=== PATIENT | male | born 1980 | race African-American/Black ===

== ENCOUNTER 2020-08-02 05:29 | Inpatient (IN) ==
[2020-08-02] MEDS ORDERED: SODIUM CHLORIDE 0.9% 1,000 ML IV STA (06:18)
[2020-08-02] MEDS ORDERED: ONDANSETRON 4 MG/2 ML VIAL IV STA (06:19)
[2020-08-02] MEDS ORDERED: PANTOPRAZOLE 40 MG VIAL IV STA (06:19)
[2020-08-02 06:37] LABS: Bilirubin,Urine Negative (Negative); Blood, Urine Negative (Negative); Glucose,Urine (UA) 150 mg/dL (Negative); Ketones,Urine Negative (Negative); Nitrite,Urine Negative (Negative); Protein,Urine 100 MG/DL; RBC,Urine 2 /HPF (0-4); Urine Appearance CLEAR (Clear); Urine Color Straw (Yellow); Urine Specific Gravity 1.011 (1.001-1.035); Urine Urobilinogen < 2.0 EU/DL (0.2-1.0); WBC,Urine 3 /HPF (0-6)
[2020-08-02] MEDS ORDERED: KETOROLAC 30 MG/1 ML VIAL IV STA (08:00)
[2020-08-02 09:30] LABS: Basophils % 0.2 % (0.0-0.8); Hematocrit 44.7 VOL% (42.0-52.0); Immature Granulocytes % 0.4 %; Immature Granulocytes Absolute 0.05 #; Lymphocytes # 0.9 10*3/uL (1.4-4.0); Lymphocytes % 7.2 % (21.2-54.2); Mean Corpuscular HGB Conc 33.6 GM/DL (32-36); Mean Platelet Volume 10.5 FL (9.6-12.0); Monocytes % 3.7 % (1.7-12.7); Neutrophils % 88.5 % (38.7-73.9); Platelet Count 303 T/CUMM (130-400); Red Blood Count 4.61 MC/CUMM (3.8-5.5); White Blood Count 11.9 T/CUMM (4-12)
[2020-08-02] MEDS ORDERED: ACETAMINOPHEN 325 MG TABLET PO PRN (09:44)
[2020-08-02] MEDS ORDERED: DEXTROSE 50% 25 GM/50 ML VIAL IV PRN (09:44)
[2020-08-02] MEDS ORDERED: GLUCAGON 1 MG VIAL IM PRN (09:44)
[2020-08-02 09:49] LABS: PT Patient Result 10.9 SECS (9.8-11.9); Partial Thromboplastin Time 28.2 SECS (23.9-33.8)
[2020-08-02 09:54] LABS: Alanine Aminotransferase 29 U/L (16-61); Albumin 5.1 G/DL (3.4-5.0); Alkaline Phosphatase 83 U/L (45-117); Aspartate Amino Transferase 16 U/L (0-37); Blood Urea Nitrogen 8 MG/DL (7-18); Calcium 9.3 MG/DL (8.5-10.1); Estimated Glom Filtration Rate 168 ML/MIN; Glucose 117 MG/DL (74-106); Total Protein 9.5 G/DL (6.4-8.3)
[2020-08-02] MEDS: SODIUM CHLORIDE 0.9% 1,000 ML IV SCH (10:05)
[2020-08-02 13:39] LABS: Hematocrit 44.2 VOL% (42.0-52.0); Hemoglobin 14.8 GM/DL (14.0-18.0)
[2020-08-02] MEDS ORDERED: hydrALAZINE 20 MG/1 ML VIAL IV PRN (15:51)
[2020-08-02] MEDS: MORPHINE 4 MG/1 ML VIAL IV PRN ×2 (16:10→21:16)
[2020-08-02 16:36] LABS: Bilirubin,Urine Negative (Negative); Blood, Urine Small mg/dL (Negative); Glucose,Urine (UA) 50 mg/dL (Negative); Ketones,Urine 5 mg/dL (Negative); Mucus,Urine Occasional /LPF (Occasional); Nitrite,Urine Negative (Negative); Protein,Urine 100 MG/DL; RBC,Urine 5 /HPF (0-4); Urine Appearance CLEAR (Clear); Urine Color Yellow (Yellow); Urine Specific Gravity 1.015 (1.001-1.035); Urine Urobilinogen < 2.0 EU/DL (0.2-1.0); WBC,Urine 2 /HPF (0-6)
[2020-08-02 17:44] LABS: Hematocrit 43.9 VOL% (42.0-52.0); Hemoglobin 15.2 GM/DL (14.0-18.0)
[2020-08-02] MEDS: PANTOPRAZOLE 40 MG VIAL IV SCH (21:16)
[2020-08-03 01:21] LABS: Hemoglobin 15.5 GM/DL (14.0-18.0)
[2020-08-03] MEDS: MORPHINE 4 MG/1 ML VIAL IV PRN ×3 (03:47→15:35)
[2020-08-03] MEDS: SODIUM CHLORIDE 0.9% 1,000 ML IV SCH ×4 (03:49→17:02)
[2020-08-03 05:45] LABS: Basophils % 0.2 % (0.0-0.8); Eosinophils % 0.1 % (0.00-10.9); Hematocrit 43.5 VOL% (42.0-52.0); Hemoglobin 15.1 GM/DL (14.0-18.0); Immature Granulocytes % 0.2 %; Immature Granulocytes Absolute 0.02 #; Lymphocytes # 2.2 10*3/uL (1.4-4.0); Lymphocytes % 19.9 % (21.2-54.2); Mean Corpuscular HGB Conc 34.7 GM/DL (32-36); Mean Corpuscular Volume 93.3 FL (87-102); Mean Platelet Volume 10.5 FL (9.6-12.0); Monocytes % 11.3 % (1.7-12.7); Neutrophils % 68.3 % (38.7-73.9); Platelet Count 313 T/CUMM (130-400); Red Blood Count 4.66 MC/CUMM (3.8-5.5); Red Cell Distribution Width 13.9 % (9.3-17.3)
[2020-08-03 06:24] LABS: Albumin 4.3 G/DL (3.4-5.0); Bilirubin,Total 0.7 MG/DL (0.2-1.0); Calcium 9.1 MG/DL (8.5-10.1); Osmolality,Calculated 273.7 MOS/KG (273-304); Risk Ratio 2.45; Thyroid Stimulating Hormone 1.06 uIU/ml (0.358-3.74); Total Protein 8.4 G/DL (6.4-8.3); VLDL CHOLESTEROL 11.6 MG/DL
[2020-08-03] MEDS: PANTOPRAZOLE 40 MG VIAL IV SCH ×2 (08:01→21:47)
[2020-08-03] MEDS ORDERED: LIDOCAINE 2% 5 ML VIAL ONE (09:00)
[2020-08-03] MEDS ORDERED: propofoL 200 MG/20 ML VIAL IV ONE (09:00)
[2020-08-03] MEDS: LACTATED RINGERS 1,000 ML IV SCH (12:00)
[2020-08-03] MEDS ORDERED: fentaNYL 100 MCG/2 ML VIAL ONE (13:32)
[2020-08-03] MEDS ORDERED: BISACODYL 5 MG TABLET PO ONE (15:00)
[2020-08-03] MEDS ORDERED: POLYETHYLENE GLYCOL POWDER 255 GM BOTTLE PO ONE (18:00)
[2020-08-03] MEDS: ONDANSETRON 4 MG/2 ML VIAL IV PRN (19:43)
[2020-08-04] MEDS: MORPHINE 4 MG/1 ML VIAL IV PRN ×4 (00:38→15:09)
[2020-08-04] MEDS: ONDANSETRON 4 MG/2 ML VIAL IV PRN (00:41)
[2020-08-04] MEDS ORDERED: MAGNESIUM CITRATE 300 ML BOTTLE PO ONE ×2 (05:00→06:00)
[2020-08-04 05:58] LABS: Basophils % 0.2 % (0.0-0.8); Eosinophils % 0.4 % (0.00-10.9); Hematocrit 41.3 VOL% (42.0-52.0); Hemoglobin 13.8 GM/DL (14.0-18.0); Immature Granulocytes % 0.2 %; Immature Granulocytes Absolute 0.02 #; Lymphocytes # 3.1 10*3/uL (1.4-4.0); Lymphocytes % 35.9 % (21.2-54.2); Mean Corpuscular HGB Conc 33.4 GM/DL (32-36); Mean Corpuscular Volume 97.2 FL (87-102); Mean Platelet Volume 10.5 FL (9.6-12.0); Monocytes % 9.3 % (1.7-12.7); Platelet Count 286 T/CUMM (130-400); Red Blood Count 4.25 MC/CUMM (3.8-5.5); Red Cell Distribution Width 14.4 % (9.3-17.3); White Blood Count 8.5 T/CUMM (4-12)
[2020-08-04 06:23] LABS: Albumin 3.9 G/DL (3.4-5.0); Bilirubin,Total 0.9 MG/DL (0.2-1.0); Calcium 8.9 MG/DL (8.5-10.1); Osmolality,Calculated 279.4 MOS/KG (273-304); Total Protein 7.7 G/DL (6.4-8.3)
[2020-08-04] MEDS: LACTATED RINGERS 1,000 ML IV SCH (08:36)
[2020-08-04] MEDS: PANTOPRAZOLE 40 MG VIAL IV SCH (08:36)
[2020-08-04] MEDS ORDERED: propofoL 200 MG/20 ML VIAL IV ONE (09:00)
[2020-08-04] MEDS ORDERED: LIDOCAINE 2% 5 ML VIAL ONE (09:00)
[2020-08-04 16:13] VITALS: BP 135/70
== END 2020-08-04 17:25 | disposition home or self-care (01) | DRG 377 ==
LOC: N.ED 05:29 → N.EDINP 09:44 → SUATTDRO 09:44 → N.4E 12:20
PROVIDERS: ADMIT Internal Medicine; ATTEND Internal Medicine

== ENCOUNTER 2021-01-07 09:08 | Inpatient (IN) ==
[2021-01-07 09:40] LABS: Basophils % 0.1 % (0.0-0.8); Hematocrit 46.1 VOL% (42.0-52.0); Hemoglobin 15.8 GM/DL (14.0-18.0); Immature Granulocytes % 0.3 %; Immature Granulocytes Absolute 0.05 #; Lymphocytes # 1.2 10*3/uL (1.4-4.0); Lymphocytes % 7.6 % (21.2-54.2); Mean Corpuscular HGB Conc 34.3 GM/DL (32-36); Mean Corpuscular Volume 93.9 FL (87-102); Mean Platelet Volume 10.1 FL (9.6-12.0); Monocytes % 6.2 % (1.7-12.7); Neutrophils % 85.8 % (38.7-73.9); Platelet Count 376 T/CUMM (130-400); Red Blood Count 4.91 MC/CUMM (3.8-5.5); Red Cell Distribution Width 13.5 % (9.3-17.3); White Blood Count 15.6 T/CUMM (4-12)
[2021-01-07 10:09] LABS: Albumin 5.6 G/DL (3.4-5.0); Bilirubin,Total 0.9 MG/DL (0.2-1.0); Calcium 10.3 MG/DL (8.5-10.1); Potassium 3.8 MMOL/L (3.5-5.1); Total Protein 9.5 G/DL (6.4-8.2)
[2021-01-07 10:19] LABS: Anisocytosis 1+; Macrocytosis 1+; Platelet Estimate Normal
[2021-01-07] MEDS ORDERED: SODIUM CHLORIDE 0.9% 1,000 ML IV STA ×2 (10:38→13:39)
[2021-01-07] MEDS ORDERED: ONDANSETRON 4 MG/2 ML VIAL IV STA (10:38)
[2021-01-07] MEDS ORDERED: MORPHINE 4 MG/1 ML VIAL IM STA (10:41)
[2021-01-07] MEDS ORDERED: ONDANSETRON 4 MG/2 ML VIAL IM STA (10:42)
[2021-01-07 11:04] LABS: Bilirubin,Urine Negative (Negative); Blood, Urine Moderate mg/dL (Negative); Glucose,Urine (UA) 50 mg/dL (Negative); Ketones,Urine 20 mg/dL (Negative); Mucus,Urine Many /LPF (Occasional); Nitrite,Urine Negative (Negative); Protein,Urine >=500 MG/DL; RBC,Urine 22 /HPF (0-4); Squamous Epithelial Cell,Urine Occasional /HPF (0-10); Urine Appearance Slightly Hazy (Clear); Urine Color Amber (Yellow); Urine Specific Gravity 1.058 (1.001-1.035); Urine Urobilinogen < 2.0 EU/DL (0.2-1.0); WBC,Urine 24 /HPF (0-6)
[2021-01-07 11:05] LABS: Barbiturates Screen,Urine Negative (Negative); Benzodiazepines Screen,Urine Negative (Negative); Cannabinoid Screen,Urine Positive (Negative); Opiate Screen,Urine Positive (Negative); Phencyclidine Screen,Urine Negative (Negative)
[2021-01-07] MEDS ORDERED: PIPERACILLIN/TAZOBACTAM 3,375 MG in SODIUM CHLORIDE 0.9% 100 ML IV STA (12:26)
[2021-01-07] MEDS ORDERED: ACETAMINOPHEN 325 MG TABLET PO PRN (14:08)
[2021-01-07] MEDS ORDERED: ONDANSETRON 4 MG/2 ML VIAL IV PRN (14:08)
[2021-01-07] MEDS: MORPHINE 4 MG/1 ML VIAL IV PRN ×2 (14:32→18:34)
[2021-01-07] MEDS: SODIUM CHLORIDE 0.45% 1,000 ML IV SCH (17:12)
[2021-01-07] MEDS: PIPERACILLIN/TAZOBACTAM 3,375 MG in SODIUM CHLORIDE 0.9% 100 ML IV SCH ×2 (17:12→22:00)
[2021-01-08] MEDS: MORPHINE 4 MG/1 ML VIAL IV PRN ×5 (00:30→23:37)
[2021-01-08 05:23] LABS: Basophils % 0.2 % (0.0-0.8); Eosinophils % 0.3 % (0.00-10.9); Hematocrit 37.2 VOL% (42.0-52.0); Hemoglobin 12.4 GM/DL (14.0-18.0); Immature Granulocytes % 0.3 %; Immature Granulocytes Absolute 0.03 #; Lymphocytes # 2.4 10*3/uL (1.4-4.0); Lymphocytes % 20.6 % (21.2-54.2); Mean Corpuscular HGB Conc 33.3 GM/DL (32-36); Mean Corpuscular Volume 96.4 FL (87-102); Mean Platelet Volume 10.6 FL (9.6-12.0); Monocytes % 10.8 % (1.7-12.7); Neutrophils % 67.8 % (38.7-73.9); Platelet Count 287 T/CUMM (130-400); Red Blood Count 3.86 MC/CUMM (3.8-5.5); Red Cell Distribution Width 13.7 % (9.3-17.3); White Blood Count 11.4 T/CUMM (4-12)
[2021-01-08 05:44] LABS: Albumin 4.1 G/DL (3.4-5.0); Calcium 8.9 MG/DL (8.5-10.1); Osmolality,Calculated 276.5 MOS/KG (273-304); Potassium 3.4 MMOL/L (3.5-5.1); Total Protein 7.5 G/DL (6.4-8.2)
[2021-01-08] MEDS: PIPERACILLIN/TAZOBACTAM 3,375 MG in SODIUM CHLORIDE 0.9% 100 ML IV SCH ×3 (05:44→21:48)
[2021-01-08] MEDS: SODIUM CHLORIDE 0.45% 1,000 ML IV SCH ×4 (07:47→21:48)
[2021-01-08] MEDS: PANTOPRAZOLE 40 MG TABLET PO SCH (08:56)
[2021-01-08] MEDS ORDERED: INDOCYANINE GREEN 25 MG VIAL IV ONE (14:31)
[2021-01-09 05:31] LABS: Basophils % 0.4 % (0.0-0.8); Eosinophils # 0.1 10*3/uL (0.0-0.87); Eosinophils % 0.8 % (0.00-10.9); Hematocrit 36.6 VOL% (42.0-52.0); Immature Granulocytes % 0.3 %; Immature Granulocytes Absolute 0.02 #; Lymphocytes # 2.4 10*3/uL (1.4-4.0); Lymphocytes % 31.9 % (21.2-54.2); Mean Corpuscular HGB Conc 32.8 GM/DL (32-36); Mean Corpuscular Volume 98.7 FL (87-102); Mean Platelet Volume 10.5 FL (9.6-12.0); Monocytes % 10.6 % (1.7-12.7); Platelet Count 271 T/CUMM (130-400); Red Blood Count 3.71 MC/CUMM (3.8-5.5); Red Cell Distribution Width 13.7 % (9.3-17.3); White Blood Count 7.4 T/CUMM (4-12)
[2021-01-09 05:38] LABS: Albumin 3.7 G/DL (3.4-5.0); Bilirubin,Total 0.7 MG/DL (0.2-1.0); Calcium 8.2 MG/DL (8.5-10.1); Osmolality,Calculated 277.5 MOS/KG (273-304); Potassium 3.6 MMOL/L (3.5-5.1); Total Protein 6.7 G/DL (6.4-8.2)
[2021-01-09] MEDS: PIPERACILLIN/TAZOBACTAM 3,375 MG in SODIUM CHLORIDE 0.9% 100 ML IV SCH ×3 (06:51→22:57)
[2021-01-09] MEDS: amLODIPine 10 MG TABLET PO SCH (08:49)
[2021-01-09] MEDS: PANTOPRAZOLE 40 MG TABLET PO SCH (08:50)
[2021-01-09] MEDS: MORPHINE 4 MG/1 ML VIAL IV PRN ×3 (08:55→17:40)
[2021-01-09] MEDS: SODIUM CHLORIDE 0.45% 1,000 ML IV SCH ×2 (09:47→13:55)
[2021-01-09] MEDS ORDERED: INDOCYANINE GREEN 25 MG VIAL IV ONE (11:05)
[2021-01-10] MEDS: PIPERACILLIN/TAZOBACTAM 3,375 MG in SODIUM CHLORIDE 0.9% 100 ML IV SCH ×2 (06:04→18:18)
[2021-01-10] MEDS ORDERED: BUPIVACAINE MPF 0.25% 30 ML VIAL ONE (06:45)
[2021-01-10] MEDS ORDERED: TISSUE ADHESIVE 1 EACH APPLICATOR TOP ONE (06:45)
[2021-01-10] MEDS ORDERED: LIDOCAINE 1%/EPI INJ 20 ML VIAL ONE (06:46)
[2021-01-10] MEDS ORDERED: fentaNYL 100 MCG/2 ML VIAL ONE ×2 (06:58→08:40)
[2021-01-10] MEDS ORDERED: MIDAZOLAM 2 MG/2 ML VIAL ONE (06:58)
[2021-01-10] MEDS ORDERED: LACTATED RINGERS 1,000 ML IV SCH (07:00)
[2021-01-10] MEDS ORDERED: ROCURONIUM 50 MG/5 ML VIAL IV ONE (07:12)
[2021-01-10] MEDS ORDERED: SEVOFLURANE 1 UNIT/15 MINUTE INH ONE ×6 (07:12→08:26)
[2021-01-10] MEDS ORDERED: propofoL 200 MG/20 ML VIAL IV ONE (07:12)
[2021-01-10] MEDS ORDERED: LIDOCAINE 2% 5 ML VIAL ONE (07:12)
[2021-01-10] MEDS: SODIUM CHLORIDE 0.45% 1,000 ML IV SCH ×3 (07:18→22:37)
[2021-01-10] MEDS ORDERED: NEOSTIGMINE 10 MG/10 ML VIAL ONE ×3 (08:10)
[2021-01-10] MEDS ORDERED: GLYCOPYRROLATE 0.4 MG/2 ML VIAL ONE ×2 (08:10→08:37)
[2021-01-10] MEDS ORDERED: ONDANSETRON 4 MG/2 ML VIAL ONE ×3 (08:20→08:27)
[2021-01-10] MEDS ORDERED: KETOROLAC 30 MG/1 ML VIAL ONE ×3 (08:20→08:27)
[2021-01-10] MEDS ORDERED: DEXAMETHASONE 4 MG/1 ML VIAL ONE ×7 (08:20→08:27)
[2021-01-10] MEDS ORDERED: ACETAMINOPHEN 1,000 MG/100 ML VIAL IV ONE (08:31)
[2021-01-10] MEDS ORDERED: MEPERIDINE 25 MG/1 ML VIAL IV PRN (09:10)
[2021-01-10] MEDS ORDERED: ONDANSETRON 4 MG/2 ML VIAL IV PRN (09:10)
[2021-01-10] MEDS: HYDROmorphone 2 MG/1 ML VIAL IV PRN ×4 (09:22→09:57)
[2021-01-10] MEDS ORDERED: hydrALAZINE 20 MG/1 ML VIAL IV ONE ×2 (09:28→09:54)
[2021-01-10] MEDS: PANTOPRAZOLE 40 MG TABLET PO SCH (09:41)
[2021-01-10] MEDS: amLODIPine 10 MG TABLET PO SCH (09:41)
[2021-01-10] MEDS: MORPHINE 4 MG/1 ML VIAL IV PRN ×3 (11:45→19:56)
[2021-01-10] MEDS: ONDANSETRON 4 MG/2 ML VIAL IV PRN ×3 (11:46→19:49)
[2021-01-10] MEDS ORDERED: PROMETHAZINE 25 MG/1 ML VIAL IM PRN (17:00)
[2021-01-11] MEDS: MORPHINE 4 MG/1 ML VIAL IV PRN (01:05)
[2021-01-11] MEDS: ONDANSETRON 4 MG/2 ML VIAL IV PRN (01:05)
[2021-01-11] MEDS: PIPERACILLIN/TAZOBACTAM 3,375 MG in SODIUM CHLORIDE 0.9% 100 ML IV SCH ×2 (02:08→09:01)
[2021-01-11] MEDS: PANTOPRAZOLE 40 MG TABLET PO SCH (09:00)
[2021-01-11] MEDS: amLODIPine 10 MG TABLET PO SCH (09:01)
[2021-01-11 11:05] VITALS: BP 110/57
[2021-01-11] MEDS: SODIUM CHLORIDE 0.45% 1,000 ML IV SCH (11:15)
== END 2021-01-11 11:43 | disposition home or self-care (01) | DRG 419 ==
LOC: N.ED 09:08 → N.EDINP 14:08 → N.3E 15:00
PROVIDERS: ADMIT Surgery; ATTEND Surgery

== ENCOUNTER 2021-01-22 11:38 | Observation (INO) ==
[2021-01-22] MEDS ORDERED: ONDANSETRON 4 MG/2 ML VIAL IV STA ×2 (13:13→15:26)
[2021-01-22] MEDS ORDERED: SODIUM CHLORIDE 0.9% 1,000 ML IV STA (13:13)
[2021-01-22 13:20] LABS: Basophils % 0.3 % (0.0-0.8); Hematocrit 33.2 VOL% (42.0-52.0); Hemoglobin 10.4 GM/DL (14.0-18.0); Immature Granulocytes % 0.6 %; Immature Granulocytes Absolute 0.07 #; Lymphocytes # 0.8 10*3/uL (1.4-4.0); Lymphocytes % 7.3 % (21.2-54.2); Mean Corpuscular HGB Conc 31.3 GM/DL (32-36); Mean Corpuscular Volume 104.7 FL (87-102); Mean Platelet Volume 9.9 FL (9.6-12.0); Monocytes % 3.4 % (1.7-12.7); Neutrophils % 88.4 % (38.7-73.9); Platelet Count 500 T/CUMM (130-400); Red Blood Count 3.17 MC/CUMM (3.8-5.5); Red Cell Distribution Width 14.8 % (9.3-17.3); White Blood Count 11.5 T/CUMM (4-12)
[2021-01-22] MEDS ORDERED: MORPHINE 4 MG/1 ML VIAL IV STA (13:21)
[2021-01-22 13:41] LABS: Albumin 4.3 G/DL (3.4-5.0); Bilirubin,Total 0.6 MG/DL (0.2-1.0); Osmolality,Calculated 269.1 MOS/KG (273-304); Potassium 3.8 MMOL/L (3.5-5.1); Total Protein 8.5 G/DL (6.4-8.2)
[2021-01-22] MEDS ORDERED: HYDROmorphone 2 MG/1 ML VIAL IV STA (15:26)
[2021-01-22] MEDS ORDERED: ONDANSETRON 4 MG/2 ML VIAL IV PRN (15:37)
[2021-01-22] MEDS ORDERED: KETOROLAC 30 MG/1 ML VIAL IV PRN (15:37)
[2021-01-22] MEDS ORDERED: HYDROmorphone 2 MG/1 ML VIAL IV PRN (15:37)
[2021-01-22] MEDS ORDERED: ACETAMINOPHEN 325 MG TABLET PO PRN (15:37)
[2021-01-22] MEDS ORDERED: BISACODYL 5 MG TABLET PO PRN (15:37)
[2021-01-22] MEDS: LACTATED RINGERS 1,000 ML IV SCH (17:20)
[2021-01-22] MEDS: PIPERACILLIN/TAZOBACTAM 3,375 MG in SODIUM CHLORIDE 0.9% 100 ML IV SCH (17:20)
[2021-01-22] MEDS ORDERED: PROMETHAZINE INJ 25 MG in SODIUM CHLORIDE 0.9% 50 ML IV PRN (17:36)
[2021-01-22] MEDS: HYDROmorphone 2 MG/1 ML VIAL IV PRN ×2 (20:14→23:44)
[2021-01-23 04:50] LABS: Basophils % 0.2 % (0.0-0.8); Eosinophils % 0.3 % (0.00-10.9); Hematocrit 30.2 VOL% (42.0-52.0); Hemoglobin 9.7 GM/DL (14.0-18.0); Immature Granulocytes % 0.5 %; Immature Granulocytes Absolute 0.05 #; Lymphocytes # 1.9 10*3/uL (1.4-4.0); Lymphocytes % 19.7 % (21.2-54.2); Mean Corpuscular HGB Conc 32.1 GM/DL (32-36); Mean Corpuscular Volume 101.3 FL (87-102); Mean Platelet Volume 10.3 FL (9.6-12.0); Monocytes % 8.3 % (1.7-12.7); Platelet Count 423 T/CUMM (130-400); Red Blood Count 2.98 MC/CUMM (3.8-5.5); Red Cell Distribution Width 14.9 % (9.3-17.3); White Blood Count 9.6 T/CUMM (4-12)
[2021-01-23] MEDS: LACTATED RINGERS 1,000 ML IV SCH ×2 (05:19→09:04)
[2021-01-23] MEDS: PIPERACILLIN/TAZOBACTAM 3,375 MG in SODIUM CHLORIDE 0.9% 100 ML IV SCH (05:20)
[2021-01-23 07:44] LABS: Albumin 3.8 G/DL (3.4-5.0); Bilirubin,Total 1.6 MG/DL (0.2-1.0); Calcium 8.8 MG/DL (8.5-10.1); Osmolality,Calculated 267.1 MOS/KG (273-304); Potassium 3.6 MMOL/L (3.5-5.1); Total Protein 7.4 G/DL (6.4-8.2)
[2021-01-23] MEDS: HYDROmorphone 2 MG/1 ML VIAL IV PRN (08:24)
[2021-01-23] MEDS ORDERED: PANTOPRAZOLE 40 MG VIAL IV SCH (09:00)
[2021-01-23] MEDS ORDERED: ENOXAPARIN 40 MG/0.4 ML SYRINGE SUBCUT SCH (09:00)
[2021-01-23 14:27] VITALS: BP 129/71
[2021-01-23] MEDS ORDERED: DOCUSATE SODIUM 100 MG CAPSULE PO SCH (21:00)
[2021-01-24] MEDS ORDERED: POLYETHYLENE GLYCOL POWDER 17 GM PACK PO SCH (09:00)
== END 2021-01-23 15:44 | disposition home or self-care (01) ==
LOC: N.EDINP 11:38 → N.ED 11:38 → N.3E 17:04 → N.EDINP 17:04
PROVIDERS: ADMIT Surgery; ATTEND Surgery

== ENCOUNTER 2021-12-25 06:36 | Inpatient (IN) ==
[2021-12-25] MEDS ORDERED: NITROGLYCERIN 2% OINT 1 INCH/GM PACK TOP STA (07:06)
[2021-12-25] MEDS ORDERED: ASPIRIN 325 MG TABLET PO STA (07:06)
[2021-12-25] MEDS ORDERED: METOPROLOL TARTRATE 5 MG/5 ML VIAL IV STA (07:06)
[2021-12-25] MEDS ORDERED: MORPHINE 10 MG/1 ML VIAL IV STA (07:07)
[2021-12-25] MEDS ORDERED: ONDANSETRON 4 MG/2 ML VIAL IV STA (07:07)
[2021-12-25 07:29] LABS: Basophils % 0.1 % (0.0-0.8); Hematocrit 48.4 VOL% (42.0-52.0); Hemoglobin 16.4 GM/DL (14.0-18.0); Immature Granulocytes % 0.3 %; Immature Granulocytes Absolute 0.05 #; Lymphocytes # 1.7 10*3/uL (1.4-4.0); Lymphocytes % 11.6 % (21.2-54.2); Mean Corpuscular HGB Conc 33.9 GM/DL (32-36); Mean Platelet Volume 10.7 FL (9.6-12.0); Monocytes % 7.1 % (1.7-12.7); Neutrophils % 80.9 % (38.7-73.9); Platelet Count 319 T/CUMM (130-400); Red Blood Count 4.99 MC/CUMM (3.8-5.5); Red Cell Distribution Width 14.3 % (9.3-17.3); White Blood Count 14.7 T/CUMM (4-12)
[2021-12-25 07:54] LABS: Alanine Aminotransferase 31 U/L (16-61); Albumin > 5.0 G/DL (3.4-5.0); Alkaline Phosphatase 84 U/L (45-117); Aspartate Amino Transferase 26 U/L (0-37); Blood Urea Nitrogen 26 MG/DL (7-18); Calcium 10.6 MG/DL (8.5-10.1); Carbon Dioxide 23 MMOL/L (21-32); Estimated Glom Filtration Rate 43 ML/MIN; Glucose 114 MG/DL (74-106); Potassium 3.3 MMOL/L (3.5-5.1); Sodium 136 MMOL/L (136-145); Total Protein 9.6 G/DL (6.4-8.2)
[2021-12-25] MEDS ORDERED: MORPHINE 2 MG/1 ML SYRINGE IV ONE (08:00)
[2021-12-25 08:09] LABS: INR 1.1; PT Patient Result 11.7 SECS (10.5-12.0); Partial Thromboplastin Time 26.1 SECS (23.8-32.1)
[2021-12-25 08:45] LABS: Hyaline Casts,Urine 227 /LPF (0-3); Mucus,Urine Many /LPF (Occasional); RBC,Urine 13 /HPF (0-4)
[2021-12-25 08:47] LABS: Urine Appearance Cloudy (Clear); Urine Color Amber (Yellow); Urine Specific Gravity > 1.030 (1.001-1.035)
[2021-12-25 08:48] LABS: Bilirubin,Urine Moderate mg/dL (Negative); Blood, Urine Moderate mg/dL (Negative); Glucose,Urine (UA) Negative (Negative); Ketones,Urine 40 mg/dL (Negative); Nitrite,Urine Negative (Negative); Protein,Urine >=300 mg/dL (Negative); Urine Urobilinogen 0.2 eU/dL (<2.0)
[2021-12-25 09:38] LABS: Barbiturates Screen,Urine Negative (Negative); Benzodiazepines Screen,Urine Negative (Negative); Cannabinoid Screen,Urine Positive (Negative); Opiate Screen,Urine Positive (Negative); Phencyclidine Screen,Urine Negative (Negative)
[2021-12-25] MEDS ORDERED: SODIUM CHLORIDE 0.9% 1,000 ML IV STA (10:26)
[2021-12-25] MEDS ORDERED: cefTRIAXone 1,000 MG in SODIUM CHLORIDE 0.9% 100 ML IV STA (10:28)
[2021-12-25] MEDS ORDERED: GLUCAGON 1 MG VIAL IM PRN (11:44)
[2021-12-25] MEDS ORDERED: hydrALAZINE 20 MG/1 ML VIAL IV PRN (11:44)
[2021-12-25] MEDS ORDERED: ONDANSETRON 4 MG/2 ML VIAL IV PRN (11:44)
[2021-12-25] MEDS ORDERED: DEXTROSE 10% 250 ML BAG IV PRN (11:44)
[2021-12-25] MEDS ORDERED: ACETAMINOPHEN 325 MG TABLET PO PRN (11:44)
[2021-12-25] MEDS ORDERED: POTASSIUM CHLORIDE 20 MEQ TABLET PO ONE (11:48)
[2021-12-25] MEDS: LACTATED RINGERS 1,000 ML IV SCH ×2 (12:32→22:11)
[2021-12-25] MEDS: HEPARIN 5,000 UNIT/1 ML VIAL SUBCUT SCH ×2 (12:32→20:42)
[2021-12-25] MEDS: MORPHINE 2 MG/1 ML SYRINGE IV PRN ×2 (15:20→20:42)
[2021-12-26] MEDS: LACTATED RINGERS 1,000 ML IV SCH (05:39)
[2021-12-26 05:43] LABS: Basophils % 0.2 % (0.0-0.8); Eosinophils % 0.3 % (0.00-10.9); Hematocrit 40.6 VOL% (42.0-52.0); Hemoglobin 13.3 GM/DL (14.0-18.0); Immature Granulocytes % 0.2 %; Immature Granulocytes Absolute 0.02 #; Lymphocytes # 3.6 10*3/uL (1.4-4.0); Lymphocytes % 39.9 % (21.2-54.2); Mean Corpuscular HGB Conc 32.8 GM/DL (32-36); Mean Platelet Volume 10.8 FL (9.6-12.0); Monocytes % 10.8 % (1.7-12.7); Neutrophils % 48.6 % (38.7-73.9); Platelet Count 239 T/CUMM (130-400); Red Blood Count 4.06 MC/CUMM (3.8-5.5); White Blood Count 9.1 T/CUMM (4-12)
[2021-12-26 06:02] LABS: Calcium 8.4 MG/DL (8.5-10.1); Osmolality,Calculated 277.8 MOS/KG (273-304); Potassium 3.7 MMOL/L (3.5-5.1); Risk Ratio 3.44; VLDL Cholesterol 21.2 MG/DL
[2021-12-26 08:09] VITALS: BP 104/64
[2021-12-26] MEDS ORDERED: PANTOPRAZOLE 40 MG TABLET PO SCH (09:00)
[2021-12-26] MEDS ORDERED: amLODIPine 10 MG TABLET PO SCH (09:00)
[2021-12-26] MEDS: HEPARIN 5,000 UNIT/1 ML VIAL SUBCUT SCH (09:01)
[2021-12-26] MEDS: MORPHINE 2 MG/1 ML SYRINGE IV PRN (10:00)
== END 2021-12-26 12:00 | disposition home or self-care (01) | DRG 683 ==
LOC: N.ED 06:36 → SUATTDRO 11:45 → N.EDINP 11:45 → N.3E 15:47
PROVIDERS: ADMIT Internal Medicine; ATTEND Emergency Medicine